=== PATIENT | female | born 1975 | race Caucasian/White ===

== ENCOUNTER 2023-03-08 10:31 | Emergency (ER) | payer OTHER ==
[~2023-03-08] VITALS: Ht 160 cm; Wt 72.7 kg
[2023-03-08 10:51] VITALS: TEMP 99.2
[2023-03-08] MEDS ORDERED: TRAM-559 PO (10:51)
[2023-03-08 10:57] LABS: COVID AG,FIA SOURCE NASAL SWAB
[2023-03-08 11:28] LABS: INFLUENZA TYPE A NEGATIVE FOR TYPE A (NEGATIVE); INFLUENZA TYPE B NEGATIVE FOR TYPE B (NEGATIVE)
[2023-03-08 11:34] LABS: SARS-COV2 (COVID) ANTIGEN,FIA Positive (Negative)
[2023-03-08 12:13] VITALS: BP 122/84; PULSE 84; RESP 18
== END 2023-03-08 12:42 | disposition home or self-care (01) ==
LOC: EMS 10:31
DX: U07.1 COVID-19 (principal); J06.9 Acute upper respiratory infection, unspecified; G89.29 Other chronic pain; M54.9 Dorsalgia, unspecified
CPT/HCPCS: 87804; 99291; Z7502